=== PATIENT | female | born 1985 | race Caucasian/White ===

== ENCOUNTER 2017-07-20 08:30 | Emergency (ER) | payer BC ==
[2017-07-20 08:40] VITALS: BP 132/81; BMI 27.4
--- NOTE | 2017-07-20 08:56 | DR.GENAD ---
HPI - PCP Primary Care Physician: CARMEL - HPI Comment HPI Comment: HISTORY BELOW. - Complaint/Symptoms Chief Complaint Doctors Comments: HEADACHE ON AND OFF FOR WEEKS. HISTORY MIGRAINE BUT HEADACHE MORE FREQUENT AND MORE INTENSE. THIS AM, DIZZY AND ATAXIC. NAUSEATED. WENT TO BED FINE. Chief Complaint:: PATIENT STATED THAT SHE WENT TO BED AND AROUND TWO O'CLOCK THIS MORNING AND WOKE UP DIZZY AND WITH A HEADACHE. SHE STATED THAT SHE FAINTED WHEN SHE GOT UP AT 6 O'CLOCK AND HAS BEEN VERY DIZZY EVERY SINCE. SHE STATED THAT HER HEADACHE EVERY WEEK OR MORE NOW. [facility] AND SHE IS TRYING TO GET A MRI SCHEDULED. - Nurses notes reviewed Nurses Notes Review: Yes - Source History Provided: Patient - Mode of Arrival Mode of Arrival: Ambulatory - Timing Onset of Chief Complaint: 07/06/17 Came on: Suddenly - Duration Duration: Intermittent Duration: Days - Severity Severity: Moderate PMH - PMH Past Medical History: Yes Past Medical History: Hypothyroidism Past Medical History Comment: ADHD Past Surgical History: Yes Surgical History: Cholecystectomy, Tonsillectomy - Family History History of Family Medical Conditions: Yes Family Medical History Comment: KIDNEY AND THYROID - Social History Does patient currently use any type of tobacco product: Yes Have you used tobacco products in the last 12 months: Yes Type of Tobacco Use: Cigarettes Does any household member use tobacco: No Alcohol Use: None Do you use any recreational Drugs:: No Lives With: Family Lives Where: Home - infectious screening In the last 2 months have you had wt loss of >10#?: NO Have you had fever, night sweats or hemotysis?: No Have you traveled outside the country in the last 6 months?: No Isolation: Standard ROS - Review of Systems Constitutional: No Symptoms Reported Eyes: No Symptoms Reported ENTM: No Symptoms Reported Respiratoy: No Symptoms Reported Cardiovascular: No Symptoms Reported, Syncope Genitourinary: No Symptoms Reported Neurological: Headache, Dizziness Musculoskeletal: No Symptoms Reported Integumentary: No Symptoms Reported Hematologic/Lymphatic: No Symptoms Reported Endocrine: No Symptoms Reported All Other Systems: Reviewed and Negative PE - Vital Signs Vitals: Temperature 98.2 F Pulse Rate 88 Respiratory Rate 20 Blood Pressure 132/81 O2 Sat by Pulse Oximetry 98 - General Limitations: No Limitations General Appearance: Alert - Head Head Exam: Normal Inspection - Eyes Eye exam: Normal Appearance - ENT ENT Exam: Normal External Ear Exam External Ear Exam: Normal External Inspection TM/Canal Exam: Bilateral Normal Nose Exam: Normal Nose Exam Mouth Exam: Normal Inspection Throat Exam: Normal Inspection - Neck Neck Exam: Normal Inspection - Chest Chest Inspection: Symmetric Chest Wall Rise - Respiratory Respiratory Exam: Normal Lung Sounds Bilat Respiratory Exam: Bilateral Clear to Auscultation - Cardiovascular Cardiovascular Exam: Regular Rate, Normal Rhythm, Normal Heart Sounds - Abdominal Exam Abdominal Exam: Normal Bowel Sounds, Soft. negative: Tenderness - Extremities Extremities Exam: Normal Inspection - Back Back Exam: Normal Inspection - Neurologic Neurological Exam: Alert, Oriented X3, CN II-XII Intact, Normal Gait, Reflexes Normal. negative: Motor Sensory Deficit - Psychiatric Psychiatric Exam: Normal Affect, Normal Mood - Skin Skin Exam: Normal Color MDM - Differential Diagnosis Differential Diagnosis: HEADACHE, DIZZINESS, SYNCOPE Course - Treatment Treatment: SEE ORDERS - Education/Counseling Education/Counseling: Patient, Education Educated On: Diagnosis, Needs for Follow Up ROR - Labs Reviewed Laboratory Results Reviewed?: Yes Result Diagrams: 07/20/17 09:32 07/20/17 09:32 Laboratory: WBC 5.8 X10^3/uL (3.6-10.0) 07/20/17 09:32 RBC 4.65 X10^6/uL (3.5-5.4) 07/20/17 09:32 Hgb 13.8 g/dL (12.0-16.0) 07/20/17 09:32 Hct 40.2 % (36.0-47.0) 07/20/17 09:32 MCV 86.3 fL (80.0-100.0) 07/20/17 09:32 MCH 29.6 pg (27.0-34.0) 07/20/17 09:32 MCHC 34.3 g/dL (33.0-35.0) 07/20/17 09:32 RDW 12.0 % (11.6-16.5) 07/20/17 09:32 Plt Count 250 X10^3/uL (150.0-450.0) 07/20/17 09:32 MPV 7.9 fL (7.4-11.0) 07/20/17 09:32 Neut % 55.9 % (42.0-75.0) 07/20/17 09:32 Lymph % 35.5 % (21.0-51.0) 07/20/17 09:32 [place] % 6.7 % (0.0-13.0) 07/20/17 09:32 Eos % 0.8 % (0.9-2.9) L 07/20/17 09:32 Baso % 1.1 % (0.2-1.0) H 07/20/17 09:32 Neut # 3.2 x10^3/uL (2.2-4.8) 07/20/17 09:32 Lymph # 2.1 X10^3/uL (1.3-2.9) 07/20/17 09:32 [place] # 0.4 x10^3/uL (0.3-0.8) 07/20/17 09:32 Eos # 0.0 x10^3/uL (0.0-0.2) 07/20/17 09:32 Baso # 0.1 X10^3/uL (0.0-0.1) 07/20/17 09:32 Absolute Nucleated RBC 0.1 /100WBC 07/20/17 09:32 Sodium 139 mmol/L (136-145) 07/20/17 09:32 Corrected Sodium TNP 07/20/17 09:32 Potassium 4.0 mmol/L (3.5-5.1) 07/20/17 09:32 Chloride 104 mmol/L (98-107) 07/20/17 09:32 Carbon Dioxide 29.2 mmol/L (21-32) 07/20/17 09:32 BUN 9 mg/dL (7-18) 07/20/17 09:32 Creatinine 0.68 mg/dL (0.55-1.02) 07/20/17 09:32 Est GFR (MDRD) Af Amer > 60 (>60) 07/20/17 09:32 Est GFR (MDRD) Non-Af > 60 (>60) 07/20/17 09:32 Glucose 92 mg/dL (65-99) 07/20/17 09:32 Calcium 9.1 mg/dL (8.5-10.1) 07/20/17 09:32 Corrected Calcium TNP 07/20/17 09:32 Total Bilirubin 0.30 mg/dL (0.2-1.0) 07/20/17: AST 19 Units/L (15-37) 07/20/17:32 ALT 26 Units/L (12-78) 07/20/17:32 Alkaline Phosphatase 62 Units/L (46-116) 07/20/17 09: Creatine Kinase 73 Units/L (26-192) 07/20/17 09:32 CK-MB (CK-2) < 1.0 ng/mL (0-4.0) 07/20/17: CK/CKMB % Calc 1.4 % (<4) 07/20/17: Troponin I < 0.02 ng/mL (0-1.5) 07/20/17: Total Protein 8.0 g/dL (6.4-8.2) 07/20/17: Albumin 3.8 g/dL (3.4-5.0) 07/20/17: Globulin 4.2 g/dL (2.5-4.5) 07/20/17: Albumin/Globulin Ratio 0.9 Ratio (1.1-2.1) L 07/20/17: HCG, Qual Negative <10 mIU/mL 07/20/17:32 Specimen Type Clean catch urine 07/20/17: Urine Color Yellow (YELLOW) 07/20/17: Urine Appearance Clear (CLEAR) 07/20/17: Urine pH 6.0 (5.0 - 8.0) 07/20/17: Ur Specific [place] 1.010 (1.000-1.030) 07/20/17: Urine Protein 1+ (NEGATIVE) 07/20/17: Urine Glucose (UA) Negative (NEGATIVE) 07/20/17: Urine Ketones Negative (NEGATIVE) 07/20/17: Urine Occult Blood 1+ (NEGATIVE) 07/20/17: Urine Nitrite Negative (NEGATIVE) 07/20/17: Urine Bilirubin Negative (NEGATIVE) 07/20/17: Urine Urobilinogen Normal (NORMAL) 07/20/17: Ur Leukocyte Esterase Negative (NEGATIVE) 07/20/17: Urine RBC 0 - 2 /HPF (NEGATIVE) 01/12/18 09:31 Urine WBC Rare /HPF (NEGATIVE) 07/20/17 09:31 Ur Squamous Epith Cells Few /HPF (NEGATIVE) 07/20/17 09:31 Amorphous Sediment Trace /HPF (NEGATIVE) 07/20/17 09:31 Urine Bacteria Trace /HPF (NEGATIVE) 07/20/17 09:31 Urine Mucus Moderate /HPF (NEGATIVE) 07/20/17 09:31 Ur Culture Indicated? No/not indicated 07/20/17 09:31 - XRAY XRAY Interpreted by: Radiologist XRAY Findings: REPORT DISCUSS WITH PATIENT AND HER . - EKG Rhythm: NSR (EKG NOTED) - Diagnosis Discharge Problem: Vertigo, Dizziness Headache Qualifiers: Headache type: unspecified Headache chronicity pattern: acute headache Intractability: intractable Qualified Code(s): R51 - Headache Syncope Qualifiers: Syncope type: unspecified Qualified Code(s): R55 - Syncope and collapse - Discharge Plan Condition: Stable Prescriptions: [id number]-[id number] [Fioricet Tab] 1 tab PO Q8H PRN #30 tab PRN Reason: Migraine Headache Ibuprofen [MOTRIN TAB 800 MG *] 800 mg PO Q8H PRN #30 tab PRN Reason: Pain/Inflammation Meclizine HCl 25 mg PO TID PRN #30 tab PRN Reason: Dizziness Ondansetron [Zofran ODT 8 mg] 8 mg PO Q8H PRN #12 tab PRN Reason: Nausea/Vomiting - Follow ups/Referrals Follow ups/Referrals: NFD,None [Primary Care Provider] - 3 days - Instructions Instructions: Migraine Headache, [id number], Vertigo, [id number], Syncope, [id number] Additional Instructions: RETURN TO ED IF WORSE. DIZZINESS PRECAUTION.
[2017-07-20] MEDS ORDERED: ANTIVERT TAB 25 MG PO ONE (09:15)
[2017-07-20] MEDS ORDERED: TORADOL 60 MG VIAL IM ONE (09:15)
[2017-07-20] MEDS ORDERED: ZOFRAN INJ 4 MG VIAL IM ONE (09:15)
[2017-07-20] MEDS ORDERED: TORADOL 60 MG VIAL ONE (09:36)
[2017-07-20] MEDS ORDERED: ANTIVERT TAB 25 MG ONE (09:36)
[2017-07-20] MEDS ORDERED: ZOFRAN INJ 4 MG VIAL ONE (09:36)
[2017-07-20 09:40] LABS: BASOPHILS # (AUTO) 0.1 X10^3/uL (0.0-0.1); BASOPHILS % (AUTO) 1.1 % (0.2-1.0); EOSINOPHILS % (AUTO) 0.8 % (0.9-2.9); HEMATOCRIT 40.2 % (36.0-47.0); HEMOGLOBIN 13.8 g/dL (12.0-16.0); LYMPHOCYTES # (AUTO) 2.1 X10^3/uL (1.3-2.9); LYMPHOCYTES % (AUTO) 35.5 % (21.0-51.0); MEAN CORPUSCULAR HEMOGLOBIN 29.6 pg (27.0-34.0); MEAN CORPUSCULAR HGB CONC 34.3 g/dL (33.0-35.0); MEAN CORPUSCULAR VOLUME 86.3 fL (80.0-100.0); MEAN PLATELET VOLUME 7.9 fL (7.4-11.0); MONOCYTES # (AUTO) 0.4 x10^3/uL (0.3-0.8); MONOCYTES % (AUTO) 6.7 % (0.0-13.0); NEUTROPHILS # (AUTO) 3.2 x10^3/uL (2.2-4.8); NEUTROPHILS % (AUTO) 55.9 % (42.0-75.0); PLATELET COUNT 250 X10^3/uL (150.0-450.0); RED BLOOD COUNT 4.65 X10^6/uL (3.5-5.4); WHITE BLOOD COUNT 5.8 X10^3/uL (3.6-10.0)
--- NOTE | 2017-07-20 09:54 | RAD ---
History: Shortness of breath Study: Portable chest Findings: Portable erect chest labeled 9:45 a.m. shows the cardiac silhouette and mediastinum to be w ithin normal limits. The lungs are clear. The osseous structures appear intact. Impression: 1. No acute radiographic chest findings. Reported By:
[2017-07-20 09:59] LABS: BLOOD UREA NITROGEN 9 mg/dL (7-18); CALCIUM 9.1 mg/dL (8.5-10.1); CARBON DIOXIDE 29.2 mmol/L (21-32); CHLORIDE 104 mmol/L (98-107); CREATININE 0.68 mg/dL (0.55-1.02); SODIUM 139 mmol/L (136-145); TROPONIN I < 0.02 ng/mL (0-1.5); eGFR BLACK RACES > 60 (>60); eGFR NON BLACK RACES > 60 (>60)
[2017-07-20 10:01] LABS: BILIRUBIN,URINE NEGATIVE (NEGATIVE); BLOOD/HEMOGLOBIN,URINE 1+ (NEGATIVE); GLUCOSE, URINE NEGATIVE (NEGATIVE); KETONES,URINE NEGATIVE (NEGATIVE); LEUKOCYTE ESTERASE ,URINE NEGATIVE (NEGATIVE); NITRITES,URINE NEGATIVE (NEGATIVE); PROTEIN,URINE 1+ (NEGATIVE); UROBILINOGEN,URINE NORMAL (NORMAL)
[2017-07-20 10:03] LABS: APPEARANCE,URINE CLEAR (CLEAR); COLOR,URINE YELLOW (YELLOW)
[2017-07-20 10:03] LABS: ALANINE AMINOTRANSFERASE 26 Units/L (12-78); ALBUMIN 3.8 g/dL (3.4-5.0); ALKALINE PHOSPHATASE 62 Units/L (46-116); ASPARTATE AMINO TRANSFERASE 19 Units/L (15-37); CREATINE KINASE 73 Units/L (26-192); CREATINE KINASE MB < 1.0 ng/mL (0-4.0)
--- NOTE | 2017-07-20 10:04 | CT ---
History: Migraines and dizziness Study: CT head without contrast. Sagittal and coronal reformations were provided. Comparison: None Findings: The ventricles and sulci are normal in size and configuration. There is no intracranial hem orrhage or mass or edema and there is no subdural collection of fluid. The calvarium is intact and th e mastoid sinuses and paranasal sinuses are clear. Impression: Negative Reported By:
[2017-07-20 10:10] LABS: CKMB % 1.4 % (<4); SERUM PREGNANCY TEST, QUAL NEGATIVE <10 mIU/mL
[2017-07-20 10:28] LABS: AMORPHOUS SEDIMENT,UR TRACE /HPF (NEGATIVE); BACTERIA,URINE TRACE /HPF (NEGATIVE); MUCUS,URINE MODERATE /HPF (NEGATIVE); RBC,URINE 0 - 2 /HPF (NEGATIVE); SQUAMOUS EPITHELIAL CELL,UR FEW /HPF (NEGATIVE)
== END 2017-07-20 11:00 | disposition home or self-care (01) ==
LOC: ER 08:45
DX: R51 Headache (principal); R42 Dizziness and giddiness; R55 Syncope and collapse
CPT/HCPCS: 36415; 70450; 71045; 80053; 81001; 82550; 82553; 84484; 84703; 85025; 93005; 93010; 96372; 99282; 99283; J1885; J2405